=== PATIENT | female | born 1965 | race Caucasian/White ===

== ENCOUNTER 2017-05-10 15:35 | Emergency (ER) | payer OTHER ==
[~2017-05-10] VITALS: Ht 154.9 cm; Wt 62.6 kg
[~2017-05-10 15:35] MED LIST: PHEN-329 PO; SULF-59 PO
[2017-05-10 16:22] VITALS: BP 125/86
--- NOTE | 2017-05-10 17:05 | NUR ---
Patient ambulated to bed 8. RN evaluating patient at bedside.
--- NOTE | 2017-05-10 17:10 | NUR ---
PATIENT PRESENTS TO ED WITH PT C/O BUMP TO VAGINAL AREA X 2 DAYS;DENIES TRAUMA DYSURIA;DENIES N/V/D; SKIN IS PINK/WARM/DRY; AAOX4 WITH EVEN AND STEADY GAIT; LUNGS CLEAR BL; HR EVEN AND REGULAR; PT DENIES ANY FEVER, CP, SOB, OR COUGH AT THIS TIME; PATIENT STATES PAIN OF 2/10 AT THIS TIME; PATIENT POSITIONED FOR COMFORT; HOB ELEVATED; BEDRAILS UP X2; BED DOWN. ALL MONITORS IN PLACED.
--- NOTE | 2017-05-10 17:35 | NUR ---
PELVIC EXAM.DONE BY DR. EPSTEIN WITH ESCORT NURSE. SPECIMEN COLLECTED AND SENT TO LAB
[2017-05-10 17:43] LABS: APPEARANCE,URINE CLEAR (CLEAR); BILIRUBIN,URINE NEGATIVE (NEGATIVE); BLOOD, URINE 1+ (NEGATIVE); COLOR,URINE YELLOW (YELLOW); LEUKOCYTE ESTERASE ,URINE NEGATIVE (NEGATIVE); NITRITE, URINE NEGATIVE (NEGATIVE); PROTEIN,URINE NEGATIVE (NEGATIVE); UGLUCOSE NEGATIVE (NEGATIVE); UROBILINOGEN,URINE 0.2 EU/dL (0.2 - 1)
[2017-05-10 17:45] LABS: BASOPHILS # (AUTO) 0.2 K/uL (0.00-0.22); BASOPHILS % (AUTO) 1.9 % (0.0-2.0); EOSINOPHILS # (AUTO) 0.2 K/uL (0-0.4); EOSINOPHILS % (AUTO) 2.2 % (0.0-4.0); HEMOGLOBIN 12.2 g/dL (12.0-16.0); LYMPHOCYTES # (AUTO) 3.5 K/uL (2.5-16.5); LYMPHOCYTES % (AUTO) 44.3 % (20.5-51.1); MEAN CORPUSCULAR HEMOGLOBIN 30 pg (27-31); MEAN CORPUSCULAR HGB CONC 33 g/dL (33-37); MEAN CORPUSCULAR VOLUME 92 fL (80-94); MONOCYTES # (AUTO) 0.5 K/uL (0.8-1.0); NEUTROPHILS # (AUTO) 3.6 K/uL (1.8-7.7); NEUTROPHILS % (AUTO) 45.6 % (42.2-75.2); PLATELET COUNT (AUTO) 255 K/uL (140-450); RED BLOOD CELL COUNT(AUTO) 4.03 MIL/uL (4.20-5.40); RED CELL DISTRIBUTION WIDTH 12.2 % (11.6-13.7)
[2017-05-10 17:46] LABS: ANION GAP 12.2 (8-16); CALCIUM 8.8 mg/dL (8.5-10.1); CARBON DIOXIDE 27.7 mmol/L (21-32); CREATININE 0.6 mg/dL (0.6-1.3); POTASSIUM 3.9 mmol/L (3.5-5.1)
[2017-05-10 17:47] LABS: BACTERIA,URINE 1-9 (FEW) /HPF (None Seen); RBC,URINE 3-10 (FEW) /HPF (0-5); SQUAMOUS EPITHELIAL CELL,UR 0-3 (FEW) /LPF (0-3 (FEW))
[2017-05-10 17:52] LABS: ALBUMIN 3.9 g/dL (3.4-5.0); TOTAL BILIRUBIN 0.8 mg/dL (0.0-1.0); TOTAL PROTEIN, SERUM 7.6 g/dL (6.4-8.2)
--- NOTE | 2017-05-10 18:04 | NUR ---
PT RESTING ON BED;NO ACUTE DISTRESS NOTED;WILL CONTINUE TO MONITOR PT.
--- NOTE | 2017-05-10 19:08 | NUR ---
Patient discharged with v/s stable. Written and verbal after care instructions given and explained. Patient alert, oriented and verbalized understanding of instructions. Ambulatory with steady gait. All questions addressed prior to discharge. ID band removed. Patient advised to follow up with PMD. Rx of DOXYCYCLINE,PYRIDIUM AND FLAGYL given. Patient educated on indication of medication including possible reaction and side effects. Opportunity to ask questions provided and answered.
[2017-05-10 19:22] VITALS: BP 118/64
== END 2017-05-10 19:08 | disposition home or self-care (01) ==
LOC: MED 15:35
DX: N76.0 Acute vaginitis (principal); R30.0 Dysuria
CPT/HCPCS: 36415; 80053; 81001; 85025; 87086; 87210; 99284

== ENCOUNTER 2019-09-30 15:13 | Emergency (ER) | payer OTHER ==
[~2019-09-30] VITALS: Ht 152.4 cm; Wt 67.1 kg
[2019-09-30 15:17] VITALS: BP 108/57
--- NOTE | 2019-09-30 15:23 | NUR ---
PT AMBULATED TO RESTROOM TO PROVIDE URINE SAMPLE. PT SENT TO LOBBY UNTIL BED BECOMES AVAILABLE. VSS.
--- NOTE | 2019-09-30 16:14 | NUR ---
PT TO ER BED 4
--- NOTE | 2019-09-30 16:31 | NUR ---
54/F C/O ABDOMINAL PAIN RUQ X 1 WEEK. PAIN LEVEL 10/10, CRAMPING, CONSTANT PAIN. DENIES N/V/D. LBM TODAY, NORMAL CONSISTENCY. ALLERGIES: NKA MED HX: NONE
[2019-09-30] MEDS ORDERED: NACL 0.9% 500 ML IV ONE (16:46)
[2019-09-30] MEDS ORDERED: KETOROLAC 30 MG/ML VIAL IVP ONE (16:50)
[2019-09-30] MEDS ORDERED: ONDANSETRON 4 MG/2 ML VIAL IVP ONE (16:50)
--- NOTE | 2019-09-30 17:18 | NUR ---
WELDER AT BEDSIDE
--- NOTE | 2019-09-30 17:25 | NUR ---
US TECH AT BEDSIDE.
[2019-09-30 17:34] LABS: HEMATOCRIT 38.2 % (36-48); HEMOGLOBIN 12.5 g/dL (12.0-16.0); MEAN CORPUSCULAR VOLUME 91.9 fL (80-94); RED BLOOD CELL COUNT(AUTO) 4.15 MIL/uL (4.20-5.40); WHITE BLOOD COUNT (AUTO) 4.5 K/uL (4.8-10.8)
[2019-09-30 17:35] LABS: BASOPHILS % (AUTO) 0.3 % (0.0-2.0); EOSINOPHILS # (AUTO) 0.1 K/uL (0-0.4); EOSINOPHILS % (AUTO) 1.2 % (0.0-4.0); LYMPHOCYTES # (AUTO) 1.7 K/uL (2.5-16.5); LYMPHOCYTES % (AUTO) 37.9 % (20.5-51.1); MEAN CORPUSCULAR HEMOGLOBIN 30 pg (27-31); MEAN CORPUSCULAR HGB CONC 33 g/dL (33-37); MONOCYTES # (AUTO) 0.5 K/uL (0.8-1.0); MONOCYTES % (AUTO) 11.1 % (1.7-9.3); NEUTROPHILS # (AUTO) 2.2 K/uL (1.8-7.7); NEUTROPHILS % (AUTO) 49.5 % (42.2-75.2); PLATELET COUNT (AUTO) 248 K/uL (140-450)
[2019-09-30 18:08] LABS: ANION GAP 14.6 (8-16); CARBON DIOXIDE 28.3 mmol/L (21-32); POTASSIUM 3.9 mmol/L (3.5-5.1)
[2019-09-30 18:09] LABS: CREATININE 0.5 mg/dL (0.6-1.3); TOTAL BILIRUBIN 1.1 mg/dL (0.0-1.0)
[2019-09-30 18:46] VITALS: BP 120/82
--- NOTE | 2019-09-30 18:48 | NUR ---
Patient discharged with v/s stable. Written and verbal after care instructions given and explained. Pt encouraged to avoid caffeine, chocolate, fatty foods, and spicy foods. Patient alert, oriented and verbalized understanding of instructions. Ambulatory with steady gait. All questions addressed prior to discharge. ID band removed. Patient advised to follow up with PMD. Rx of zofran 4mg and protonix 40mg was given. Patient educated on indication of medication including possible reaction and side effects. Opportunity to ask questions provided and answered.
== END 2019-09-30 18:48 | disposition home or self-care (01) ==
LOC: MED 15:13
DX: K29.70 Gastritis, unspecified, without bleeding (principal); Z79.899 Other long term (current) drug therapy
CPT/HCPCS: 36415; 76705; 80053; 81002; 81025; 83690; 85025; 96361; 96374; 96375; 99284; J1885; J2405; J7030; Q0092

== ENCOUNTER 2019-12-22 17:00 | Emergency (ER) | payer OTHER ==
[~2019-12-22] VITALS: Ht 157.5 cm; Wt 69.1 kg
[2019-12-22 17:12] VITALS: BP 144/98
--- NOTE | 2019-12-22 17:29 | NUR ---
54 Y/O FEMALE PRESENTS TO ED WITH LOWER BACK PAIN S/P WORK RELATED INJURY ON THURSDAY. PT REPORTS SHE WAS MOVING PALLETS AT WORK AND FELT A SPIKE OF PAIN IN HER BACK. PAIN IS 10/10 SHARP PAIN THAT RADIATES TO HER RIGHT PERIUMBILICAL AREA. ROM IN TACT IN UPPER/LOWER BILAT EXTREMITIES. CMS+. DENIES ANY SOB/CP, N/V/D. DENIES ANY INJURY TO HEAD. SKIN IN TACT, NO OBVIOUS DEFORMITY NOTED. NO PMH NKA
[2019-12-22] MEDS ORDERED: KETOROLAC 60 MG/2 ML VIAL IM ONE (17:30)
--- NOTE | 2019-12-22 18:02 | NUR ---
PT REPORTS THAT PAIN HAS DECREASED TO 5/10
[2019-12-22 18:37] VITALS: BP 144/98
--- NOTE | 2019-12-22 18:37 | NUR ---
Patient discharged with v/s stable. Written and verbal after care instructions given and explained. Patient verbalized understanding. Ambulatory with steady gait. All questions addressed prior to discharge. Advised to follow up with PMD.
== END 2019-12-22 18:37 | disposition home or self-care (01) ==
LOC: MED 17:00
DX: M54.5 Low back pain (principal); Z79.899 Other long term (current) drug therapy; Z98.890 Other specified postprocedural states
CPT/HCPCS: 81002; 96372; 99283; J1885